=== PATIENT | male | born 1950 | race Caucasian/White ===

== ENCOUNTER 2024-11-30 15:31 | Inpatient (IN) | payer MEDICARE, OTHER, BC, SELFPAY ==
[2024-11-30] VITALS (52 sets, daily range): BP systolic 140–182; BP diastolic 68–97; PULSE 53–89; RESP 9–21; TEMP 36.7–37.1; O2SAT 92–100
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
--- NOTE | 2024-11-30 16:09 | W.EDPROG ---
Date of service: 11/30/24 Time of Service: 16:09 Medical Decision Making Primary survey intact. Reassuring shock index. Negative E-FAST. Discharge Plan Discharge Details Chief Complaint: Trauma ED Provider: Winsome Grant POCUS Exam (ED) Efast Exam DATE OF EXAM: 11/30/24 TIME OF EXAM: 16:09 PROVIDER THAT PEFORMED THE STUDY: Corey Fallon IS THIS A REPEAT EXAM DURING THIS ENCOUNTER: no REASON FOR EXAM: Other (Trauma) indication: Negative E-FAST VISUALIZED STRUCTURES: Hepatorneal space, Pelvis, Pericardium, Perisplenic space, Pleural space/left, Pleural space/right and Other structure: Bilateral lungs PERTINENT FINDINGS/IMPRESSION: no apparent free fluid, no pericardial effusion, no pleural effusion on the left side, no pleural effusion on the right side, no pneumothorax on left side and no pneumothorax on right side INCIDENTAL FINDINGS: Negative eFAST exam Limited Transthoracic Echo: Exam complete Limited Abdominal Exam: Exam complete Limited Retroperitoneal Exam: Exam complete
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
[2024-11-30] MEDS: ACETAMINOPHEN 500 MG/50 ML BAG 200 MG IVPB (16:31)
[2024-11-30] MEDS: Cyclobenzaprine 10 MG TAB PO (16:32)
[2024-11-30 16:45] LABS: Abs Immature Grans 0.02 10^3/uL (0.0-0.06); HCT 40.8 % (40.0-50.0); HGB 13.7 g/dL (13.5-17.5); Immature Grans % 0.3 %; MCH 30.2 pg (27.0-33.0); MCHC 33.6 % (32.0-36.0); MCV 90 fL (80-95); MPV 8.8 fL (8.0-11.0); Platelet Count 233 10^3/uL (130-400); RBC 4.53 10^6/uL (4.36-5.78); RDW 12.6 % (11.8-14.1); RDW-SD 41.6 fL; WBC 6.94 10^3/uL (4.4-10.8)
[2024-11-30 16:58] LABS: INR 1.1 (0.9-1.1); PTT Activated 24.4 sec (20.6-30.2); Prothrombin Time 10.6 sec (9.1-11.1)
[2024-11-30 17:02] LABS: ALT 29 U/L (16-63); AST 26 U/L (15-37); Albumin 3.8 g/dL (3.4-5.0); Alkaline Phosphatase 75 U/L (46-116); Anion Gap 7.4 mmol/L (3-11); BUN 28 mg/dL (7-18); Bilirubin, Total 0.4 mg/dL (0.2-1.0); CO2 29.6 mmol/L (21.0-32.0); Calcium 8.9 mg/dL (8.5-10.1); Chloride 100 mmol/L (98-107); Estimated GFR 69.57 (mL/min/1.73m2); Glucose 156 mg/dL (74-106); Lipase 73 U/L (<78); Magnesium 2.1 mg/dL (1.8-2.4); Potassium 4.0 mmol/L (3.5-5.1); Sodium 137 mmol/L (136-145); Total Protein 6.9 g/dL (6.4-8.2); Troponin I 8 ng/L (<or=76)
[2024-11-30] MEDS: Omnipaque 350 MG/ML 100 ML BTL IJ (17:07)
[2024-11-30] MEDS: Normal Saline - Diluent 50 ML VIAL IJ (17:07)
--- NOTE | 2024-11-30 18:15 | DI.RAD_ITS ---
Exam(s) XR CHEST 2V PA LATERAL EXAM: XR CHEST 2V PA LATERAL CLINICAL HISTORY: Eval Right PNthx TECHNIQUE: 2D digital imaging was performed. Two views. COMPARISON: No exams were available for comparison FINDINGS: Exam somewhat limited by low lung volumes. HEART: Normal size. Aorta: Not dilated. PULMONARY VASCULATURE: Normal. MEDIASTINUM: Unremarkable. LUNGS: Clear increased basilar densities. PLEURAL SPACE: Small right apical pneumothorax. Minimal right pleural effusion. BONE:Right 7th rib fracture. SOFT TISSUES: Unremarkable. IMPRESSION: Small right apical pneumothorax. Right 7th rib fracture. Basilar atelectasis. The preliminary [facility] report was reviewed. DATA REPOSITORY: RADIATION DOSE DELIVERED:
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
--- NOTE | 2024-11-30 20:16 | DI.VRAD_ITS ---
PROCEDURE INFORMATION: Exam: XR Chest Exam date and time: 11/30/2024 7:35 PM Age: 74 years old Clinical indication: Other: Eval right pnthx TECHNIQUE: Imaging protocol: Radiologic exam of the chest. Views: 2 views. COMPARISON: CT CHEST/ABD/PEL W 11/30/2024 5:01 PM FINDINGS: Lungs: No pulmonary consolidation is seen. There is relatively decreased pulmonary volume on the right, probably from respiratory splinting in the setting of rib fractures. Pleural spaces: A small right apical pneumothorax is not well demonstrated on the follow-up exam but appears similar in size compared with the CT chest exam from 5:06 p.m. no left-sided pneumothorax is demonstrated. No pleural effusion is seen. Heart/Mediastinum: The heart appears normal in size. Bones/joints: There is a fracture deformity along the lateral aspect of the right 6th rib which is not confidently seen on the recent comparison CT chest exam. A fracture deformity along the lateral aspect of the right 7th rib appears more displaced on the plain film image than on the comparison CT exam from 5:06 p.m. There are osteophytes along the thoracic spinal margin. IMPRESSION: 1. Small right apical pneumothorax, not well demonstrated by the plain film exam but probably similar in size compared with the recent CT chest exam. 2. Fracture deformity along the lateral aspect of the right 6th rib, not confidently seen on the CT chest exam. Fracture deformity along the lateral aspect of the right 7th rib with a more displaced appearance than on the comparison CT exam from 5:06 p.m. Dictated and Authenticated by: Booker Crowley MD. Orderin Juanita Schumacher MD
--- NOTE | 2024-11-30 22:00 | RT.EKG_ITS ---
APPROVED REPORT Exam: Resting ECG Reason for Exam: mild ST elevation on tele Patient Location: I HR:64 bpm ECG Measurements Heart Rate 64 AXIS GA 183 P 77 QRSd 140 QRS -67 QT 457 T 39 QTc 472 Conclusion Sinus rhythm...normal P axis, V-rate LBBB
[2024-11-30] MEDS: Acetaminophen 500 MG TAB 1000 MG PO (22:14)
[2024-11-30] MEDS: Methocarbamol 500 MG TAB 1000 MG PO (22:16)
[2024-11-30] MEDS: Lidocaine 5% Patch 1 PATCH TP (22:18)
[2024-11-30] MEDS: Normal Saline Flush 10 ML SYR IVP (22:32)
[2024-11-30] MEDS: Ibuprofen 600 MG TAB PO (23:27)
[2024-11-30 23:35] LABS: Troponin I 9 ng/L (<or=76)
[2024-11-30] MEDS: oxyCODONE 5 MG TAB PO (23:42)
[2024-12-01] VITALS (30 sets, daily range): BP systolic 108–157; BP diastolic 62–97; PULSE 50–81; RESP 11–24; TEMP 36.5–36.9; O2SAT 95–99
[2024-12-01 02:06] LABS: Abs Immature Grans 0.01 10^3/uL (0.0-0.06); HCT 39.5 % (40.0-50.0); HGB 13.7 g/dL (13.5-17.5); Immature Grans % 0.2 %; MCH 30.7 pg (27.0-33.0); MCHC 34.7 % (32.0-36.0); MCV 89 fL (80-95); MPV 8.9 fL (8.0-11.0); Platelet Count 231 10^3/uL (130-400); RBC 4.46 10^6/uL (4.36-5.78); RDW 12.6 % (11.8-14.1); RDW-SD 41.3 fL; WBC 5.74 10^3/uL (4.4-10.8)
[2024-12-01 02:11] LABS: Anion Gap 9.6 mmol/L (3-11); BUN 23 mg/dL (7-18); CO2 26.4 mmol/L (21.0-32.0); Calcium 9.0 mg/dL (8.5-10.1); Chloride 100 mmol/L (98-107); Estimated GFR 78.00 (mL/min/1.73m2); Glucose 177 mg/dL (74-106); Potassium 3.8 mmol/L (3.5-5.1); Sodium 136 mmol/L (136-145)
[2024-12-01 02:19] LABS: Troponin I 9 ng/L (<or=76)
[2024-12-01] MEDS: oxyCODONE 5 MG TAB PO ×3 (04:45→23:50)
[2024-12-01] MEDS: Methocarbamol 500 MG TAB 1000 MG PO ×4 (04:46→21:26)
[2024-12-01] MEDS: Acetaminophen 500 MG TAB 1000 MG PO ×4 (04:46→21:26)
[2024-12-01] MEDS: Ibuprofen 600 MG TAB PO ×4 (06:14→23:52)
--- NOTE | 2024-12-01 06:30 | RT.EKG_ITS ---
APPROVED REPORT Exam: Resting ECG Reason for Exam: Follow-up EKG Patient Location: I HR:65 bpm ECG Measurements Heart Rate 65 AXIS IL 168 P -27 QRSd 149 QRS -58 QT 464 T 38 QTc 483 Conclusion Sinus rhythm...normal P axis, V-rate 50- 99 Left bundle branch block...QRSd>120, broad/notched R
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
[2024-12-01] MEDS: Enoxaparin 30 MG/0.3 ML SYR SC ×2 (09:20→21:27)
[2024-12-01] MEDS: Normal Saline Flush 10 ML SYR IVP ×2 (09:21→21:26)
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
--- NOTE | 2024-12-01 14:37 | OT.INNT ---
Occupational Therapy Notes 12/01/24 OT consult received and pts chart was reviewed, Pt was out of room for testing. OT will attempt consult tomorrow. Juanita Hancock, OTR/L
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
[2024-12-01] MEDS: Lidocaine 5% Patch 1 PATCH TP (21:26)
[2024-12-02] VITALS (17 sets, daily range): BP systolic 109–163; BP diastolic 67–89; PULSE 47–77; RESP 7–21; TEMP 36.5–36.7; O2SAT 95–98
[2024-12-02] MEDS: Methocarbamol 500 MG TAB 1000 MG PO ×2 (04:30→10:14)
[2024-12-02] MEDS: Ibuprofen 600 MG TAB PO ×2 (06:19→12:45)
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
--- NOTE | 2024-12-02 09:12 | W.PM.PROGNOT ---
Date of Service Date of service: 12/02/24 Time of Service: 09:12 Assessment and Plan Assessment and plan (1) Closed traumatic fracture of ribs of right side with pneumothorax: Status: Acute Assessment and plan: Pneumothorax stable on x-ray. Removed from oxygen this morning. Pain well-controlled - Multimodal pain control - no strenuous activity for 2 weeks - No air travel for at least 2 weeks - Okay to drive if not taking sedating meds?narcotics/muscle relaxers - Encouraged incentive spirometer - Recheck pulse ox after facemask removed - Likely discharge today - Return precautions discussed (2) Left bundle branch block: Status: Acute Assessment and plan: Seen by cardiology. Echo with normal function - Discussed with patient and family at bedside - Follow-up with PCP (3) Compression fracture of T4 vertebra: Status: Acute Assessment and plan: Seen by Ortho. - Weightbearing as tolerated - No strenuous activity Subjective Subjective Interval history since last seen: pain well controlled, not requiring oxycodone. seen by cards - LBBB but preserved function on echo, likely chronic. No further recs. xray stable with slight pneumo Exam Const General: cooperative, healthy appearing, comfortable and no acute distress Chest Chest: localized rib tenderness with anteroposterior compression and tenderness (mild, improved) Resp Effort & Inspection: normal respiratory effort Cardio Rate: regular rate Skin General skin exam: turgor normal Objective Last Vital Signs Temp 36.6 C 12/02/24 08:11 Pulse 60 12/02/24 08:11 Resp 16 12/02/24 08:11 BP 111/78 12/02/24 08:11 Pulse Ox 96 12/02/24 08:11 Time Spent with Patient Time Spent with Patient: 25-34 minutes Time was spent: preparing to see the patient(eg.review tests), ordering medications,tests, procedures, referring, communicating with other health home health aide caregiver, indepentently interpreting results, counseling the patient and care coordination
--- NOTE | 2024-12-02 09:15 | RT.EKG_ITS ---
APPROVED REPORT Exam: Resting ECG Reason for Exam: interval owen pending cards consult Patient Location: I HR:64 bpm ECG Measurements Heart Rate 64 AXIS SC 156 P -25 QRSd 146 QRS -41 QT 457 T 30 QTc 472 Conclusion Sinus rhythm...normal P axis, V-rate 50- 99 Left bundle branch block...QRSd>120, broad/notched R
[2024-12-02] MEDS: Acetaminophen 500 MG TAB 1000 MG PO (10:13)
[2024-12-02] MEDS: Enoxaparin 30 MG/0.3 ML SYR SC (10:14)
[2024-12-02] MEDS: Normal Saline Flush 10 ML SYR IVP (10:15)
[2024-12-02] MEDS: Docusate Sodium 100 MG CAP PO (10:52)
[2024-12-02] MEDS: Polyethylene Glycol 3350 17 GM PACKET PO (10:52)
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
== END 2024-12-02 15:00 | disposition home health service (06) | DRG 200 ==
LOC: ER 18:46 → ICU 20:52
PROVIDERS: Admitting Provider Surgery; Emergency Provider Registered Nurse Emergency; Visit Provider Surgery
DX: S22.040A Wedge compression fracture of fourth thoracic vertebra, initial encounter for closed fracture (principal); V19.9XXA Pedal cyclist (driver) (passenger) injured in unspecified traffic accident, initial encounter; S27.0XXA Traumatic pneumothorax, initial encounter; S80.811A Abrasion, right lower leg, initial encounter; R94.31 Abnormal electrocardiogram [ECG] [EKG]; I44.7 Left bundle-branch block, unspecified; S22.31XA Fracture of one rib, right side, initial encounter for closed fracture
CPT/HCPCS: 00123; 36415; 74177; 76604; 76705; 76857; 80048; 80053; 83690; 96365; 97162; 97165; 97530; 99221; 99222; 99223; 99232; 99238; 99291; 70450; 71045; 71046; 71260; 72125; 83735; 84484; 85025; 85610; 85730; 93005; 93010; 93306; 94760; J0131; J1650; J3490

== ENCOUNTER → 2024-12-02 11:10 | Outpatient (BNVA) | payer MEDICARE, BC, SELFPAY | PROVIDERS: Visit Provider Internal Medicine Cardiovascular Disease ==